=== PATIENT | male | born 1970 | race Asian ===

== ENCOUNTER → 2024-05-24 13:05 | Outpatient (REF) | payer OTHER, SELFPAY | LOC: HWRAD 13:05 | PROVIDERS: ATTENDING PHYSICIAN Family Medicine | DX: F32.2 Major depressive disorder, single episode, severe without psychotic features (principal); R41.3 Other amnesia; R51.9 Headache, unspecified; R22.1 Localized swelling, mass and lump, neck | CPT/HCPCS: 70470; 70492; Q9967 ==

== ENCOUNTER 2024-11-01 11:03 | Emergency (ER) | payer OTHER, SELFPAY ==
--- NOTE | 2024-11-01 11:24 | ED.GENMED ---
ED Provider Triage
<Matthias Louise PA-C - Last Filed: 11/01/24 11:27>
-
Patient seen by provider in Triage?: Seen in Triage
54 yo male presents for constipation x 3 weeks. Reports no passing of flatus and no liquid stool. Not on opiates. Reporting urge to defecate but unable to go. Still urinating but having some difficulty passing urine. No fevers. No prior abd
surgeries. Last colonoscopy 1 year ago, per pt unremarkable
Looks well, non distended.
Check obstruction series XR
History of Present Illness
<Matthias Louise PA-C - Last Filed: 11/01/24 11:27>
General
Chief Complaint: Bowel Problem
Time Seen by Provider: 11/01/24 14:03
<Zoraida Sanchez MD - Last Filed: 11/01/24 16:33>
General
Source: patient
History of Present Illness
History of Present Illness:
54-year-old male who states he has not been able to have a bowel movement in at least 2 if not 3 weeks. He is eating as usual, denies nausea, vomiting, fever, chills. He denies abdominal pain but feels that his abdomen is distended. He has the
urge to defecate but says that its 'hard' and he is unable to actually pass the stool. He denies bleeding, dizziness, or other complaints. He tried MiraLAX, otherwise no meds.
Past History
<Matthias Louise PA-C - Last Filed: 11/01/24 11:27>
Past History
ED Past Medical History: None
ED Past Surgical History: None
Social History
Tobacco: Non-smoker
Alcohol: None
Drug: None
Personal:
Living: with family
Employment: Employed
Phy Exam
<Zoraida Sanchez MD - Last Filed: 11/01/24 16:33>
Physical Exam
Physical Exam:
GENERAL: Alert , in no apparent distress
EYE: pupils equal and reactive
NECK: Supple, no significant adenopathy.
ENT: o/p clr, mmm.
CARDIAC: Regular rate and rhythm .
LUNGS: Clear breath sounds bilaterally, no acute respiratory distress, no wheezes/rales/rhonchi
ABDOMEN: Soft, without focal tenderness, no r/g, no cvat
NEUROLOGICAL: Alert and oriented, no focal neuro deficits
SKIN: Warm and dry, skin intact.
MUSCULOSKELETAL: No edema, well perfused.
PSYCH: Normal and appropriate interaction.
Course
<Matthias Louise PA-C - Last Filed: 11/01/24 11:27>
Orders/Labs/Results
Orders:
Orders
11/01/24 11:26
CR Obstruct Series W/pa Chest Urgent
Comment:
Reason For Exam: constipation/obstruction
11/01/24 14:45
Enema- Treatment ONCE
Type: Milk of Molasses
Vital Signs
Initial and Last Documented VS:
Initial Vital Signs
Temp Pulse Resp BP Pulse Ox
98.1 F 65 20 154/115 99
11/01/24 11:25 11/01/24 11:25 11/01/24 11:25 11/01/24 11:25 11/01/24 11:25
Last Documented Vital Signs
Temp Pulse Resp BP Pulse Ox
97.5 F 74 16 146/109 98
11/01/24 13:12 11/01/24 16:15 11/01/24 16:15 11/01/24 16:15 11/01/24 16:15
<Zoraida Sanchez MD - Last Filed: 11/01/24 16:33>
Orders/Labs/Results
Orders:
Orders
11/01/24 11:26
CR Obstruct Series W/pa Chest Urgent
Comment:
Reason For Exam: constipation/obstruction
11/01/24 14:45
Enema- Treatment ONCE
Type: Milk of Molasses
Vital Signs
Initial and Last Documented VS:
Initial Vital Signs
Temp Pulse Resp BP Pulse Ox
98.1 F 65 20 154/115 99
11/01/24 11:25 11/01/24 11:25 11/01/24 11:25 11/01/24 11:25 11/01/24 11:25
Last Documented Vital Signs
Temp Pulse Resp BP Pulse Ox
97.5 F 74 16 146/109 98
11/01/24 13:12 11/01/24 16:15 11/01/24 16:15 11/01/24 16:15 11/01/24 16:15
<Zoraida Sanchez MD - Last Filed: 11/01/24 16:33>
*Critical Care Note
Total Time (30-74mins, 75-104mins- exclusive of procedures): Not Applicable
<Zoraida Sanchez MD - Last Filed: 11/01/24 16:33>
Update Note
Update Note:
Patient presents to the Emergency Department with __urge to defecate without having bowel movements
Number and Complexity of Problems Addressed at the Encounter
� Chronic conditions affecting care:
� Acute Exacerbation and/or Progression of Chronic Illness:
� Differential Diagnosis includes: But not limited to constipation, ileus, bowel obstruction, etc. etc.
Amount and/or Complexity of Data to be Reviewed and Analyzed
� I performed an independent evaluation of and my interpretation is:
EKG:
CT:
Xrays:large amount of stool, no obstruction
Laboratory Studies:
Other:
� Review of other/old records reveals:
� Clinical information was obtained by an independent historian:
� Prescriptions/Medications Considered but not given:
� Further testing considered but not performed:
Risk of Complications and/or Morbidity or Mortality of Patient Management
� Social determinants of health affecting care:
� Discussion with other providers (PCP, Hospitalists, Consultants, etc):
� Escalation of care including admission/observation vs risk of discharge considered: 2:14 PM nurse KI present, attempted to disimpact patient however stool too high, I can feel stool in the vault, brown, no bleeding noted. We
will proceed with an enema.
4:32 PM patient had a large bowel movement here and feels much better. He did note bright red blood when he passed the stool. This is painless. He still feels like he has more stool to pass but does feel tremendous relief as well. I suspect
blood from all the straining that he has been doing, likely internal hemorrhoids. Hemodynamically stable. Patient advised to see GI and close follow-up, and reasons return to the ER.
ED Attending Note
<Matthias Louise PA-C - Last Filed: 11/01/24 11:27>
-
Portions of this chart may have been created with voice recognition software.� Occasional wrong word or��sound alike� substitutions may have occurred due to the inherent limitations of voice recognition software.
Discharge Plan
Departure
Patient with high blood pressure during this ER visit?: Yes
Condition: Good
Discharge Problem:
Constipation
Instructions: Constipation, Adult (DC), BLOOD PRESSURE
Prescriptions:
New
magnesium citrate Solution
150 ml PO BID PRN (Reason: Constipation) Qty: 296 0RF
No Action
Meloxicam
1 dose PO DAILY
ciprofloxacin HCl 0.3 % drops
1 drp ophthalmic (eye) Q4H 5 Days Qty: 5 0RF
Referrals:
Nimo Maloney MD [Active] - Next open appointment
Activity Restrictions/Additional Instructions:
TAKE MIRALAX REGULARLY (DAILY) DIRECTED. IF YOU DEVELOP FEVER, CHILLS, VOMITING, CHEST PAIN, TROUBLE BREATHING, ABDOMINAL PAIN, REPEATED BLEEDING, OR OTHER WORRISOME SIGNS, GO TO THE ER IMMEDIATELY!
Interventions
Interventions:
*Risk Screen - Suicide Last Done: 11/01/24 16:26
*General Assessment Last Done: 11/01/24 11:25
*Neglect/Abuse Screening Last Done: 11/01/24 16:26
ED- Fall Risk Assessment Last Done: 11/01/24 16:23
*ED COVID-19 Vaccine History Last Done: 11/01/24 16:26
AC-Fggjzi-Ravwohbyzm Assessment Last Done: 11/01/24 14:15
Discharge Date and Time
Print Language: AMHARIC
[2024-11-01 11:25] VITALS: BP 154/115
[2024-11-01 13:12] VITALS: BP 155/108
--- NOTE | 2024-11-01 14:05 | EDRN ---
Dr. Sanchez in room w/ pt at this time.
[2024-11-01 14:15] VITALS: BP 163/103
--- NOTE | 2024-11-01 15:05 | EDRN ---
Milk and Molasses enema administered at this time.
[2024-11-01 16:15] VITALS: BP 146/109
--- NOTE | 2024-11-01 16:38 | ED.GENMED ---
History of Present Illness
General
Chief Complaint: Bowel Problem
Time Seen by Provider: 11/01/24 14:03
Past History
Past History
ED Past Medical History: None
ED Past Surgical History: None
Social History
Tobacco: Non-smoker
Alcohol: None
Drug: None
Personal:
Living: with family
Employment: Employed
Course
Orders/Labs/Results
Orders:
Orders
11/01/24 11:26
CR Obstruct Series W/pa Chest Urgent
Comment:
Reason For Exam: constipation/obstruction
11/01/24 14:45
Enema- Treatment ONCE
Type: Milk of Molasses
Vital Signs
Initial and Last Documented VS:
Initial Vital Signs
Temp Pulse Resp BP Pulse Ox
98.1 F 65 20 154/115 99
11/01/24 11:25 11/01/24 11:25 11/01/24 11:25 11/01/24 11:25 11/01/24 11:25
Last Documented Vital Signs
Temp Pulse Resp BP Pulse Ox
97.5 F 74 16 146/109 98
11/01/24 13:12 11/01/24 16:15 11/01/24 16:15 11/01/24 16:15 11/01/24 16:15
ED Attending Note
-
Portions of this chart may have been created with voice recognition software.� Occasional wrong word or��sound alike� substitutions may have occurred due to the inherent limitations of voice recognition software.
Discharge Plan
Departure
Patient Disposition: Home (Routine Discharge)
Date of Disposition: 11/01/24
Time of Disposition: 16:38
Patient with high blood pressure during this ER visit?: Yes
Condition: Good
Discharge Problem:
Constipation
Instructions: Constipation, Adult (DC), BLOOD PRESSURE
Prescriptions:
New
magnesium citrate Solution
150 ml PO BID PRN (Reason: Constipation) Qty: 296 0RF
No Action
Meloxicam
1 dose PO DAILY
ciprofloxacin HCl 0.3 % drops
1 drp ophthalmic (eye) Q4H 5 Days Qty: 5 0RF
Referrals:
Nimo Maloney MD [Active] - Next open appointment
Activity Restrictions/Additional Instructions:
TAKE MIRALAX REGULARLY (DAILY) DIRECTED. IF YOU DEVELOP FEVER, CHILLS, VOMITING, CHEST PAIN, TROUBLE BREATHING, ABDOMINAL PAIN, REPEATED BLEEDING, OR OTHER WORRISOME SIGNS, GO TO THE ER IMMEDIATELY!
Interventions
Interventions:
*Risk Screen - Suicide Last Done: 11/01/24 16:26
*General Assessment Last Done: 11/01/24 11:25
*Neglect/Abuse Screening Last Done: 11/01/24 16:26
ED- Fall Risk Assessment Last Done: 11/01/24 16:23
*ED COVID-19 Vaccine History Last Done: 11/01/24 16:26
VA-Qzbmoe-Jcmywasrhl Assessment Last Done: 11/01/24 14:15
Discharge Date and Time
Print Language: HONDURAN
== END 2024-11-01 16:41 | disposition home or self-care (01) ==
LOC: EMR 11:03
PROVIDERS: EMERGENCY PHYSICIAN Emergency Medicine; FAMILY PHYSICIAN Family Medicine
DX: K59.00 Constipation, unspecified (principal)
CPT/HCPCS: 99283; 74022

== ENCOUNTER 2025-07-04 12:18 | Emergency (ER) | payer OTHER, SELFPAY ==
[2025-07-04 12:27] VITALS: BP 135/93
--- NOTE | 2025-07-04 12:38 | ED.GENMED ---
History of Present Illness
General
Chief Complaint: Bowel Problem
Source: patient and records
Exam Limitations: none
Time Seen by Provider: 07/04/25 12:30
Nursing documentation reviewed up to this point in time: agreed with
History of Present Illness
History of Present Illness:
54-year-old male with history as noted presents to the ER for evaluation of constipation. Patient reports that this has become a chronic issue over the past few months. He was initially seen for constipation in October ultimately received an enema
that provided some relief immediately. He says that since then however he has not made any adjustments to his lifestyle and he is once again severely constipated over the past 2 months. He admits that he is not physically active and does not have
a very good diet. He says that he has had only very small, hard bowel movements over the past 2 months occasionally requiring digital disimpaction himself. He says he has had increased abdominal fullness and occasional crampy pain. He reports
decreased appetite and reports that over the past few 2 months he has lost significant weight�he says nearly 40 pounds since October. He has not had any nausea or vomiting. He denies any fever or chills. He denies any other acute complaints. He
has been using Fleet enemas at home but says that they have had decreasing effectiveness lately. He denies any prior abdominal surgeries.
Past History
Past History
ED Past Medical History: None
ED Past Surgical History: None
Social History
Tobacco: Non-smoker
Alcohol: None
Drug: None
Personal:
Living: with family
Employment: Employed
Review of Systems
Review of Systems
All Other Systems: ROS reviewed and negative except as documented in HPI and ROS
Constitutional: Reports weight loss; Denies fever
Respiratory: Denies trouble breathing
Cardiac: Denies chest pain
ABD/GI: Reports abdominal pain, constipated and anorexia; Denies nausea or vomiting
: Denies flank pain
Musculoskeletal: Denies neck pain or back pain
Neurological: Denies dizzy or headache
Phy Exam
Physical Exam
Physical Exam:
General: Awake, alert, oriented x3; anxious but in no acute distress
Head: Normocephalic, atraumatic
Eyes: Conjunctiva normal, sclera anicteric
Throat: Airway intact, handling secretions
Neck: Trachea midline
Lungs: Breathing comfortably no distress
Heart: Regular rate
Abd: Normal active bowel sounds, abdomen is soft, non distended, minimally tender left lower quadrant
Neuro: Grossly intact
Extremities: Warm and well-perfused
Scores
Heart Failure Risk
Heart Failure Risk Score: Not Applicable
Heart Score for Chest Pain Patients
STEMI patient?: Not applicable
Withdrawal Assessment of Alcohol
Withdrawal Assessment Completed?: Not applicable
Course
Orders/Labs/Results
Orders:
Orders
07/04/25 12:37
CT Abd/pelvis W Iv Cont Urgent
Comment:
Reason For Exam: constipation, weight loss
07/04/25 12:45
Complete Blood Count/With Diff Urgent
Comprehensive Metabolic Panel Urgent
TSH Reflex To Free T4 Urgent
07/04/25 14:46
Enema- Treatment ONCE
Type: Milk of Molasses
Amoxicillin 875 mg/Clav 125 mg [Augmentin 875 mg/125 mg] 1 tablet PO NOW STA
Abnormal Lab Results
07/04/25
12:45
Hgb 12.9 L g/dL
(13.0-18.0)
MCV 70.2 L fL
(80.0-94.0)
MCH 21.5 L pg
(27.0-31.0)
MCHC 30.6 L g/dL
(33.0-37.0)
RDW 14.7 H %
(11.5-14.5)
Absolute Monos (auto) 0.7 H 10^3/uL
(0.1-0.6)
Glucose 104 H mg/dl
(70-99)
07/04/25 12:45
07/04/25 12:45
Vital Signs
Initial and Last Documented VS:
Initial Vital Signs
Temp Pulse Resp BP Pulse Ox
36.7 C 86 16 135/93 98
07/04/25 12:07/04/25 12:07/04/25 12:07/04/25 12:07/04/25 12:27
Last Documented Vital Signs
Temp Pulse Resp BP Pulse Ox
36.7 C 86 16 135/93 98
07/04/25 12:07/04/25 12:07/04/25 12:07/04/25 12:07/04/25 12:45
MDM/Problems Addressed
Differential Diagnosis Includes:
Constipation/fecal impaction, bowel obstruction, malignancy, electrolyte derangement, hypothyroidism
MDM/Problems Addressed:
54-year-old male presents for evaluation of continued constipation worse over the past 2 months. Reports that this has become a chronic issue. Associated poor appetite and weight loss. No vomiting. He has abdominal fullness and occasional
cramping but no pain currently. Vital signs are normal here. Physical exam as above. Had similar visit in [facility] obstruction series at that time which was negative and received an enema with good relief. Given his report of weight loss in
addition to worsening constipation will check CT abdomen pelvis. Send basic labs and thyroid studies. Reassess after the above. Will ultimately need GI referral�failed to follow-up after previous ER visit.
Labs reviewed: CBC unremarkable, CMP no clinically significant abnormalities. Thyroid studies normal. CT shows significant constipation with findings consistent with stercoral colitis as well. I disimpacted a hard piece of stool from patient's
rectum; there is some remaining stool that was beyond my reach, plan to treat with enema. Cover with Augmentin for stercoral colitis.
Patient had large bowel movement after enema here. Provided magnesium citrate for home and instructed regarding bowel regimen for the next few days to help with constipation. We spoke about increasing water intake, exercise, fiber in his diet as
well as lifestyle adjustments to help with these issues. I advised him of the need to follow-up with a central office technician after his visit today. I spoke to him about return precautions in detail and all questions were answered. Clinically stable
for discharge at this point.
*Radiology
Radiology exam reviewed: radiology read reviewed
*Pulse Oximetry
SaO2: 98
Oxygen Mode of Delivery: Room air
Patient hypoxic: no (98%)
*Critical Care Note
Total Time (30-74mins, 75-104mins- exclusive of procedures): Not Applicable
Data Reviewed
Source: patient and records
ED Attending Note
-
Portions of this chart may have been created with voice recognition software.� Occasional wrong word or��sound alike� substitutions may have occurred due to the inherent limitations of voice recognition software.
Discharge Plan
Departure
Patient Disposition: Home (Routine Discharge)
Date of Disposition: 07/04/25
Time of Disposition: 16:39
Patient with high blood pressure during this ER visit?: Yes
Discharge Problem:
Constipation
Instructions: Constipation, Adult (DC), High-fiber diet
Prescriptions:
New
polyethylene glycol 3350 [Miralax] 17 gram/dose powder
4 g PO DAILY Qty: 119 0RF
docusate sodium [Colace] 100 mg capsule
100 mg PO DAILY Qty: 30 0RF
amoxicillin-pot clavulanate 875-125 mg tablet
1 tab PO BID Qty: 14 0RF
No Action
Meloxicam
1 dose PO DAILY
ciprofloxacin HCl 0.3 % drops
1 drp ophthalmic (eye) Q4H 5 Days Qty: 5 0RF
magnesium citrate Solution
150 ml PO BID PRN (Reason: Constipation) Qty: 296 0RF
Referrals:
Walp,Desire K., DO [Active, Gastroenterology] - Call in 1-3 days for appt
Referral Note: GI physician
Activity Restrictions/Additional Instructions:
Thank you for visiting the Emergency Department at [facility] [place].
1. Please schedule a follow up appointment as directed. Call first thing tomorrow morning to make an appointment.
2. If indicated, please take your medications as instructed and indicated on discharge paperwork.
3. If any of your symptoms do not improve, or persist, or become more severe within 6-12 hours, please return to the emergency department for further care.
4. Please return to the emergency department if you develop a headache, neck pain/stiffness, fever greater than 100.4F, chest pain, shortness of breath, persistent nausea, vomiting, slurred speech, difficulty walking, numbness/tingling, weakness,
signs of infection or any other symptoms that are worrisome to you.
Please call [phone] if you have any questions.
Interventions
Interventions:
*Risk Screen - Suicide Last Done: 07/04/25 12:27
*Neglect/Abuse Screening Last Done: 07/04/25 12:27
JC-Fngwfh-Bleshpwvzq Assessment Last Done: 07/04/25 15:22
Discharge Date and Time
Print Language: YI
[2025-07-04 12:59] LABS: Hematocrit 42.1 % (39.0-52.0); Hemoglobin 12.9 g/dL (13.0-18.0); Mean Corp Hgb Conc. 30.6 g/dL (33.0-37.0); Mean Corpuscular Volume 70.2 fL (80.0-94.0); Nucleated Red Blood Cells % 0 % (-); Platelet Count 268 10^3/uL (130-400); Red Cell Dist. Width 14.7 % (11.5-14.5)
[2025-07-04 13:13] LABS: ALT (SGPT) 19 U/L (0-50); AST (SGOT) 29 U/L (17-59); Albumin 4.9 g/dl (3.5-5.0); Alkaline Phosphatase 63 U/L (38-126); Blood Urea Nitrogen 19 mg/dl (9-20); Calcium 9.7 mg/dl (8.4-10.2); Carbon Dioxide 27 mmol/L (22-30); Chloride 103 mmol/L (98-107); Glucose 104 mg/dl (70-99); Potassium 4.2 mmol/L (3.5-5.1); Sodium 140 mmol/L (135-145); Total Protein 8.0 g/dl (6.3-8.2); eGFR > 60.00
[2025-07-04] MEDS: AUGMENTIN 875 MG/125 MG 1 TABLET PO (15:09)
[2025-07-04] MEDS: CITROMA 300 ML PO (16:50)
[2025-07-04 17:32] VITALS: BP 128/70
== END 2025-07-04 17:35 | disposition home or self-care (01) ==
LOC: EMR 12:18
PROVIDERS: EMERGENCY PHYSICIAN Emergency Medicine; FAMILY PHYSICIAN Nurse Practitioner Acute Care
DX: K59.00 Constipation, unspecified (principal); K52.89 Other specified noninfective gastroenteritis and colitis
CPT/HCPCS: 99284; 74177; 80053; 84443; 85025; Q9967

== ENCOUNTER 2025-10-01 09:56 | Emergency (ER) | payer OTHER, SELFPAY ==
[2025-10-01 09:57] VITALS: BP 177/113
--- NOTE | 2025-10-01 11:47 | ED.GENMED ---
History of Present Illness
General
Chief Complaint: Bowel Problem
Time Seen by Provider: 10/01/25 11:03
History of Present Illness
History of Present Illness:
55-year-old male with prior history of constipation presenting to the emergency department for constipation. Patient reports absence of bowel movements in the past few weeks. He has been trying MiraLAX at home. Notes that he has had similar
symptoms in the past requiring enemas and disimpaction. Notes some generalized abdominal discomfort without localized pain. Denies any abdominal surgeries in the past. Denies fever. Denies additional acute medical complaint
Past History
Past History
ED Past Medical History: None
ED Past Surgical History: None
Social History
Tobacco: Non-smoker
Alcohol: None
Drug: None
Personal:
Living: with family
Employment: Employed
Phy Exam
Physical Exam
Physical Exam:
General: Well-appearing, no clinical signs of dehydration, nontoxic and in no acute distress
HEENT: protecting airway
Neck: appears supple
CV: Normal heart rate
Resp: No accessory muscle use, no increased work of breathing, lungs clear to auscultation bilaterally
Abd: Soft and non-distended, no tenderness to palpation, normal bowel sounds
Extremities: No deformities, no swelling
Neuro: alert, no focal neurologic deficit
: deferred
Rectal: deferred
Psych: Normal affect
Skin: Intact
Course
Orders/Labs/Results
Orders:
Orders
10/01/25 11:42
Enema- Treatment ONCE
Type: Milk of Molasses
Vital Signs
Initial and Last Documented VS:
Initial Vital Signs
Temp Pulse Resp BP Pulse Ox
98.2 F 60 16 177/113 100
10/01/25 09:57 10/01/25 09:57 10/01/25 09:57 10/01/25 09:57 10/01/25 09:57
Last Documented Vital Signs
Temp Pulse Resp BP Pulse Ox
98.2 F 60 16 177/113 100
10/01/25 09:57 10/01/25 09:57 10/01/25 09:57 10/01/25 09:57 10/01/25 11:47
MDM/Problems Addressed
MDM/Problems Addressed:
55-year-old male with prior history of constipation presenting for constipation. Vital signs on arrival are significant for hypertension.
On exam patient is resting comfortably, no acute distress. Unremarkable abdominal exam, no distention, no tenderness. On review of EMR, patient has been seen for this issue in the past, requiring both enema and disimpaction. No present concern
for obstruction. Will plan for enema and reassess
13:45 -without success from the enema. Went to go try disimpact, however patient notes that he successfully disimpact himself in the bathroom, got out a large stool ball. Will retry enema with ultimate plan for discharge and continued diet
modification with regular bowel regiment
*Pulse Oximetry
SaO2: 100
Oxygen Mode of Delivery: Room air
Patient hypoxic: no
*Critical Care Note
Total Time (30-74mins, 75-104mins- exclusive of procedures): Not Applicable
ED Attending Note
-
Portions of this chart may have been created with voice recognition software.� Occasional wrong word or��sound alike� substitutions may have occurred due to the inherent limitations of voice recognition software.
Discharge Plan
Departure
Prescriptions:
No Action
Meloxicam
1 dose PO DAILY
ciprofloxacin HCl 0.3 % drops
1 drp ophthalmic (eye) Q4H 5 Days Qty: 5 0RF
magnesium citrate Solution
150 ml PO BID PRN (Reason: Constipation) Qty: 296 0RF
polyethylene glycol 3350 [Miralax] 17 gram/dose powder
4 g PO DAILY Qty: 119 0RF
docusate sodium [Colace] 100 mg capsule
100 mg PO DAILY Qty: 30 0RF
amoxicillin-pot clavulanate 875-125 mg tablet
1 tab PO BID Qty: 14 0RF
Referrals:
Bridget Handley CRNP [Family Provider, General]
Discharge Date and Time
Print Language: KAZAKH
[2025-10-01 12:00] VITALS: BP 155/84
== END 2025-10-01 15:44 | disposition home or self-care (01) ==
LOC: EMR 09:56
PROVIDERS: EMERGENCY PHYSICIAN Student in an Organized Health Care Education/Training Program; FAMILY PHYSICIAN Nurse Practitioner Acute Care
DX: K59.00 Constipation, unspecified (principal); I10 Essential (primary) hypertension
CPT/HCPCS: 99282